=== PATIENT | female | born 1945 | race Caucasian/White ===

== ENCOUNTER → 2016-08-03 | Outpatient (CLI) | payer MEDICARE, BC ==
[~2016-08-03] MED LIST: B-121000 MCG PO; CALCIUM 600600 M2 PO; CLEOCIN HCL300 MG PO; FOLIC ACID800 MCG PO; FOSAMAX5 MG PO; KLOR-CON M2020 MEQ PO; MAGNESIUM500 MG PO; NORCO 325 MG-51 TAB PO; OSCAL 500 TAB500 MG PO; PREDNISONE10 MG PO; PROAIR HFA0.09 MG/AC IH; QVAR0.08 MG/AC IH; ROBAXIN100 MG/ML; SINGULAIR 110 MG/TAB PO; TOPAMAX 100MG100 M1 PO; VITAMIN D 1001000 IU PO; VTAMINC250TA PO
== END ==
LOC: COL.VAS 08:39
DX: M79.604 Pain in right leg (principal); M79.89 Other specified soft tissue disorders; M25.562 Pain in left knee

== ENCOUNTER → 2016-10-25 | Outpatient (CLI) | payer MEDICARE, BC | LOC: MC.RAD 11:28 | DX: Z12.31 Encounter for screening mammogram for malignant neoplasm of breast (principal) ==

== ENCOUNTER 2018-01-28 10:13 | Day surgery (SDC) | payer MEDICARE, BC ==
[~2018-01-28] VITALS: Ht 152.4 cm; Wt 42.4 kg
[~2018-01-28 10:13] MED LIST changes: +CEPHALEXIN500 M1 PO; +DOXYCYCLINE 10100 MG PO; +RITUXAN HY1400 MG/11 IV.SOLN; +TAZTIA180 PO
[2018-01-28] MEDS ORDERED: CALCIUM 600-D 61 TAB PO (11:02)
[2018-01-28] MEDS ORDERED: ANORO IH (11:02)
[2018-01-28] MEDS ORDERED: TOPROL XL 25MG25 MG PO (11:03)
[2018-01-28] MEDS ORDERED: MAG-OX 400400 MG/TAB PO (11:03)
[2018-01-28] MEDS ORDERED: ATROVENTNS0.03% NS (11:04)
[2018-01-28] MEDS ORDERED: CEPHALEXIN250 M1 PO (11:04)
[2018-01-28] MEDS ORDERED: SYNTHROID0.05 MG/TA PO (11:05)
[2018-01-28 11:18] VITALS: BP 119/61; PULSE 60; TEMP 97.6
[2018-01-28 13:12] VITALS: BP 111/49; PULSE 52; TEMP 97.5
[2018-01-28 13:27] VITALS: BP 108/48; PULSE 51
[2018-01-28 13:42] VITALS: BP 102/49; PULSE 51
[2018-01-28 13:57] VITALS: BP 108/43; PULSE 62
== END 2018-01-28 14:40 | disposition home or self-care (01) ==
LOC: SDCO 10:13
DX: G43.909 Migraine, unspecified, not intractable, without status migrainosus (principal); J44.9 Chronic obstructive pulmonary disease, unspecified; M06.9 Rheumatoid arthritis, unspecified; I35.9 Nonrheumatic aortic valve disorder, unspecified; F17.210 Nicotine dependence, cigarettes, uncomplicated; D50.9 Iron deficiency anemia, unspecified; Z88.5 Allergy status to narcotic agent; Z96.651 Presence of right artificial knee joint; Z96.641 Presence of right artificial hip joint
CPT/HCPCS: J2250; J2405; J2704; J2795; J3010; J7120

== ENCOUNTER 2018-05-20 19:45 | Inpatient (IN) | payer MEDICARE, BC ==
[~2018-05-20] VITALS: Ht 157.5 cm; Wt 50.9 kg
[~2018-05-20 19:45] MED LIST changes: +ANORO IH; +ATROVENTNS0.03% NS; +CALCIUM 600-D 61 TAB PO; +CEPHALEXIN250 M1 PO; +MAG-OX 400400 MG/TAB PO; +SYNTHROID0.05 MG/TA PO; +TOPROL XL 25MG25 MG PO
[2018-05-20 21:25] LABS: BASO # 0.1 (0.0-0.2); BASO % 0.5 % (0.0-2.0); EOS # 0.1 (0.0-0.7); EOS % 0.8 % (0-4.0); GRAN # 12.3 (1.4-6.5); GRAN % 87.1 % (42.2-75.2); HEMOGLOBIN 10.4 g/dl (12.5-16.0); LYMPH # 0.8 (1.2-3.4); MEAN CELL VOLUME 89 fl (80.0-100.0); MEAN CORPUSCULAR HEMOGLOBIN 28 pg (27.0-31.0); MEAN CORPUSCULAR HGB CONC 32 g/dl (33.0-37.0); MEAN PLATELET VOLUME 9.5 fl (7.4-10.4); MONO # 0.7 (0.1-0.6); MONO % 5.2 % (1.7-9.3); PLATELET COUNT 222 K/mm3 (130-400); RED BLOOD COUNT 3.69 M/mm3 (4.10-5.30); REDCELL DISTRIBUTION WIDTH-CV 20.9 % (11.5-14.5)
[2018-05-20 21:29] LABS: HEMATOCRIT 32.8 % (37.0-47.0)
[2018-05-20 21:36] LABS: ALANINE AMINOTRANSFERASE 24 U/L (9-52); ALBUMIN 3.4 gm/dL (3.5-5.0); ALKALINE PHOSPHATASE 31 U/L (50-136); ANION GAP 3 mmol/L (7-16); AST,SGOT 23 U/L (15-37); BILIRUBIN,TOTAL < 0.1 mg/dL (0.0-1.0); BLOOD UREA NITROGEN 22 mg/dL (7-17); C-REACTIVE PROTEIN 6.5 mg/dL (0.0-0.9); CALCIUM 8.5 mg/dL (8.4-10.2); CARBON DIOXIDE 28 mmol/L (22-30); CHLORIDE 113 mmol/L (98-107); CREATININE, serum 0.93 mg/dL (0.52-1.25); GLUCOSE 90 mg/dL (74-106); POTASSIUM 3.3 mmol/L (3.4-5.0); SODIUM 143 mmol/L (137-145)
[2018-05-20 23:39] VITALS: BP 125/47; PULSE 88; TEMP 103.1
[2018-05-21] VITALS (809 sets, daily range): BP systolic 81–121; BP diastolic 33–61; PULSE 67–84; TEMP 97.8–99.9; O2SAT 51–100
[2018-05-21 00:47] LABS: MAGNESIUM 2.3 mg/dL (1.6-2.3)
[2018-05-21] MEDS ORDERED: LASIX 20MG TABL20 MG PO (04:41)
[2018-05-21] MEDS ORDERED: NEURONTIN300 MG/CAP PO (04:41)
[2018-05-21] MEDS ORDERED: DEPAKOTE 250MG250 MG PO (04:43)
[2018-05-21 06:11] LABS: BASO % 0.3 % (0.0-2.0); EOS % 0.3 % (0-4.0); GRAN % 84.3 % (42.2-75.2); MEAN CELL VOLUME 90 fl (80.0-100.0); MEAN CORPUSCULAR HGB CONC 31 g/dl (33.0-37.0); MEAN PLATELET VOLUME 10.1 fl (7.4-10.4); MONO % 7.3 % (1.7-9.3); PLATELET COUNT 181 K/mm3 (130-400); RED BLOOD COUNT 3.02 M/mm3 (4.10-5.30); REDCELL DISTRIBUTION WIDTH-CV 21.2 % (11.5-14.5)
[2018-05-21 06:27] LABS: HEMATOCRIT 27.1 % (37.0-47.0); HEMOGLOBIN 8.4 g/dl (12.5-16.0); MEAN CORPUSCULAR HEMOGLOBIN 28 pg (27.0-31.0)
[2018-05-21 06:28] LABS: INR 1.2 (0.8-3.0)
[2018-05-21 06:33] LABS: CALCIUM 7.1 mg/dL (8.4-10.2); CREATININE, serum 0.91 mg/dL (0.52-1.25); POTASSIUM 4.2 mmol/L (3.4-5.0)
[2018-05-21 06:38] LABS: SALICYLATE 3.4 mg/dL
[2018-05-21 06:46] LABS: TROPONIN-I 0.031 ng/mL (0.000-0.034)
[2018-05-21 06:53] LABS: COLLECTION METHOD CLEAN CATCH
[2018-05-21 07:05] LABS: PH 6 (5-8); SQUAMOUS EPITHELIAL None Seen /hpf; URINE APPEARANCE Clear; URINE BACTERIA None Seen /hpf; URINE BILIRUBIN Negative (NEGATIVE); URINE BLOOD 1+ (NEGATIVE); URINE COLOR Yellow; URINE GLUCOSE Negative (NEGATIVE); URINE KETONE Negative (NEGATIVE); URINE LEUKOCYTE ESTERASE Negative (NEGATIVE); URINE NITRATE Negative (NEGATIVE); URINE PROTEIN(semi-quant) Negative (NEGATIVE); URINE UROBILINOGEN Negative (NEGATIVE)
[2018-05-21 07:11] LABS: ARTERIAL BLD GAS O2 SATURATION 93.6 % (92-100); ARTERIAL BLD GAS TCO2 CT 22.7; ARTERIAL BLOOD GAS HCO3 21.5 meq/L (22-26); ARTERIAL BLOOD GAS PCO2 36.5 mmHg (35-45); ARTERIAL BLOOD GAS PO2 74.5 mmHg (80-100); ARTERIAL BLOOD GAS pH 7.39 (7.35-7.45)
[2018-05-21 17:53] LABS: BASO # 0.1 (0.0-0.2); BASO % 0.5 % (0.0-2.0); EOS # 0.1 (0.0-0.7); EOS % 0.9 % (0-4.0); GRAN # 8.6 (1.4-6.5); GRAN % 80.5 % (42.2-75.2); LYMPH # 0.9 (1.2-3.4); LYMPH % 8.7 % (20.0-51.0); MEAN CELL VOLUME 90 fl (80.0-100.0); MEAN CORPUSCULAR HGB CONC 31 g/dl (33.0-37.0); MEAN PLATELET VOLUME 9.9 fl (7.4-10.4); MONO # 0.9 (0.1-0.6); MONO % 8.7 % (1.7-9.3); PLATELET COUNT 186 K/mm3 (130-400); RED BLOOD COUNT 2.97 M/mm3 (4.10-5.30); REDCELL DISTRIBUTION WIDTH-CV 21.7 % (11.5-14.5)
[2018-05-21 17:54] LABS: HEMATOCRIT 26.8 % (37.0-47.0); HEMOGLOBIN 8.4 g/dl (12.5-16.0); MEAN CORPUSCULAR HEMOGLOBIN 28 pg (27.0-31.0)
[2018-05-21 18:04] LABS: CALCIUM 7.3 mg/dL (8.4-10.2); CREATININE, serum 1.09 mg/dL (0.52-1.25); POTASSIUM 3.9 mmol/L (3.4-5.0)
[2018-05-21 22:21] LABS: BASO % 0.4 % (0.0-2.0); EOS # 0.1 (0.0-0.7); EOS % 0.5 % (0-4.0); GRAN # 7.3 (1.4-6.5); GRAN % 78.5 % (42.2-75.2); HEMATOCRIT 26.3 % (37.0-47.0); HEMOGLOBIN 8.2 g/dl (12.5-16.0); LYMPH % 10.6 % (20.0-51.0); MEAN CELL VOLUME 90 fl (80.0-100.0); MEAN CORPUSCULAR HEMOGLOBIN 28 pg (27.0-31.0); MEAN CORPUSCULAR HGB CONC 31 g/dl (33.0-37.0); MEAN PLATELET VOLUME 9.6 fl (7.4-10.4); MONO # 0.9 (0.1-0.6); MONO % 9.7 % (1.7-9.3); PLATELET COUNT 176 K/mm3 (130-400); RED BLOOD COUNT 2.94 M/mm3 (4.10-5.30); REDCELL DISTRIBUTION WIDTH-CV 21.7 % (11.5-14.5)
[2018-05-21 22:31] LABS: CALCIUM 7.5 mg/dL (8.4-10.2); CREATININE, serum 0.98 mg/dL (0.52-1.25); POTASSIUM 4.2 mmol/L (3.4-5.0)
[2018-05-22] VITALS (1027 sets, daily range): BP systolic 115–134; BP diastolic 57–67; PULSE 61–93; TEMP 97.3–101.4; O2SAT 60–100
[2018-05-22 02:13] LABS: BASO # 0.1 (0.0-0.2); BASO % 0.5 % (0.0-2.0); EOS # 0.1 (0.0-0.7); EOS % 0.6 % (0-4.0); GRAN # 6.7 (1.4-6.5); GRAN % 72.3 % (42.2-75.2); LYMPH # 1.4 (1.2-3.4); MEAN CELL VOLUME 90 fl (80.0-100.0); MEAN CORPUSCULAR HGB CONC 31 g/dl (33.0-37.0); MEAN PLATELET VOLUME 9.6 fl (7.4-10.4); MONO % 11.2 % (1.7-9.3); PLATELET COUNT 181 K/mm3 (130-400); RED BLOOD COUNT 2.96 M/mm3 (4.10-5.30); REDCELL DISTRIBUTION WIDTH-CV 21.6 % (11.5-14.5)
[2018-05-22 02:17] LABS: HEMATOCRIT 26.6 % (37.0-47.0); HEMOGLOBIN 8.2 g/dl (12.5-16.0); MEAN CORPUSCULAR HEMOGLOBIN 28 pg (27.0-31.0)
[2018-05-22 02:29] LABS: CALCIUM 7.4 mg/dL (8.4-10.2); CREATININE, serum 0.91 mg/dL (0.52-1.25); POTASSIUM 4.1 mmol/L (3.4-5.0)
[2018-05-22 06:29] LABS: BASO # 0.1 (0.0-0.2); BASO % 0.7 % (0.0-2.0); EOS # 0.1 (0.0-0.7); EOS % 1.4 % (0-4.0); GRAN # 5.8 (1.4-6.5); GRAN % 66.3 % (42.2-75.2); HEMATOCRIT 26.7 % (37.0-47.0); HEMOGLOBIN 8.1 g/dl (12.5-16.0); LYMPH # 1.6 (1.2-3.4); LYMPH % 18.6 % (20.0-51.0); MEAN CELL VOLUME 92 fl (80.0-100.0); MEAN CORPUSCULAR HEMOGLOBIN 28 pg (27.0-31.0); MEAN CORPUSCULAR HGB CONC 30 g/dl (33.0-37.0); MONO # 1.1 (0.1-0.6); MONO % 12.8 % (1.7-9.3); PLATELET COUNT 178 K/mm3 (130-400); RED BLOOD COUNT 2.91 M/mm3 (4.10-5.30); REDCELL DISTRIBUTION WIDTH-CV 21.8 % (11.5-14.5)
[2018-05-22 06:41] LABS: INR 1.1 (0.8-3.0); PROTHROMBIN TIME 12.6 SECONDS (9.7-12.8)
[2018-05-22 06:59] LABS: ALANINE AMINOTRANSFERASE 28 U/L (9-52); ALBUMIN 2.4 gm/dL (3.5-5.0); ALKALINE PHOSPHATASE 24 U/L (50-136); ANION GAP -1 mmol/L (7-16); AST,SGOT 28 U/L (15-37); BILIRUBIN,TOTAL < 0.1 mg/dL (0.0-1.0); BLOOD UREA NITROGEN 11 mg/dL (7-17); CALCIUM 7.5 mg/dL (8.4-10.2); CARBON DIOXIDE 26 mmol/L (22-30); CHLORIDE 116 mmol/L (98-107); CREATININE, serum 0.89 mg/dL (0.52-1.25); GLUCOSE 102 mg/dL (74-106); SODIUM 141 mmol/L (137-145); TOTAL PROTEIN 4.7 gm/dL (6.4-8.2)
[2018-05-23] VITALS (570 sets, daily range): BP systolic 112–146; BP diastolic 43–86; PULSE 57–81; TEMP 97.5–99.6; O2SAT 78–100
[2018-05-23 06:10] LABS: BASO # 0.1 (0.0-0.2); BASO % 1.3 % (0.0-2.0); EOS # 0.7 (0.0-0.7); EOS % 11.8 % (0-4.0); GRAN # 2.6 (1.4-6.5); GRAN % 46.6 % (42.2-75.2); LYMPH # 1.6 (1.2-3.4); LYMPH % 28.8 % (20.0-51.0); MEAN CELL VOLUME 91 fl (80.0-100.0); MEAN CORPUSCULAR HGB CONC 30 g/dl (33.0-37.0); MEAN PLATELET VOLUME 9.7 fl (7.4-10.4); MONO # 0.6 (0.1-0.6); MONO % 11.3 % (1.7-9.3); PLATELET COUNT 166 K/mm3 (130-400); RED BLOOD COUNT 2.85 M/mm3 (4.10-5.30); REDCELL DISTRIBUTION WIDTH-CV 21.2 % (11.5-14.5)
[2018-05-23 06:16] LABS: HEMOGLOBIN 7.9 g/dl (12.5-16.0); MEAN CORPUSCULAR HEMOGLOBIN 28 pg (27.0-31.0)
[2018-05-23 06:32] LABS: CALCIUM 7.5 mg/dL (8.4-10.2); CREATININE, serum 0.87 mg/dL (0.52-1.25); PROTHROMBIN TIME 11.2 SECONDS (9.7-12.8)
[2018-05-24 04:21] VITALS: BP 117/56; PULSE 77
[2018-05-24 07:41] LABS: BASO # 0.1 (0.0-0.2); EOS # 0.5 (0.0-0.7); EOS % 8.8 % (0-4.0); GRAN # 3.3 (1.4-6.5); GRAN % 56.4 % (42.2-75.2); LYMPH # 1.3 (1.2-3.4); LYMPH % 21.6 % (20.0-51.0); MEAN CELL VOLUME 91 fl (80.0-100.0); MEAN CORPUSCULAR HGB CONC 31 g/dl (33.0-37.0); MEAN PLATELET VOLUME 9.9 fl (7.4-10.4); MONO # 0.7 (0.1-0.6); MONO % 11.9 % (1.7-9.3); PLATELET COUNT 226 K/mm3 (130-400); RED BLOOD COUNT 3.04 M/mm3 (4.10-5.30)
[2018-05-24 07:46] LABS: PROTHROMBIN TIME 11.3 SECONDS (9.7-12.8)
[2018-05-24 07:48] LABS: HEMATOCRIT 27.5 % (37.0-47.0); HEMOGLOBIN 8.4 g/dl (12.5-16.0); MEAN CORPUSCULAR HEMOGLOBIN 28 pg (27.0-31.0)
[2018-05-24 07:50] LABS: CALCIUM 8.3 mg/dL (8.4-10.2); CREATININE, serum 0.81 mg/dL (0.52-1.25); POTASSIUM 3.9 mmol/L (3.4-5.0)
[2018-05-24 07:57] VITALS: BP 126/62; PULSE 77; TEMP 98.9
[2018-05-24 11:11] VITALS: BP 126/53; PULSE 68; TEMP 99.1
[2018-05-24] MEDS ORDERED: DOXYCYCLINE HY100 MG PO (13:33)
[2018-05-24] MEDS ORDERED: ANTI-DIARRHEAL2 MG PO (13:34)
[2018-05-24] MEDS ORDERED: FLORASTOR250 MG PO (13:34)
[2018-05-24] MEDS ORDERED: CEPHALEXIN500 M1 PO (13:34)
[2018-05-24 13:35] LABS: TSH w REFLEX 7.61 uIU/mL (0.465-4.680)
== END 2018-05-24 14:40 | disposition home or self-care (01) | DRG 871 ==
LOC: COL.ER 19:45 → MEDICAL 22:15 → ICU 22:15 → MEDICAL 05-23 12:33
PROVIDERS: Family Medicine; Hospitalist; Internal Medicine Pulmonary Disease; Nurse Practitioner Family; Physician Assistant
PROC: 02HV33Z Insertion of Infusion Device into Superior Vena Cava, Percutaneous Approach (ICD-10-PCS; principal; 2018-05-21)
DX: A41.9 Sepsis, unspecified organism (principal); E43 Unspecified severe protein-calorie malnutrition; L03.115 Cellulitis of right lower limb; Z68.1 Body mass index [BMI] 19.9 or less, adult; Z66 Do not resuscitate; R65.20 Severe sepsis without septic shock; H35.52 Pigmentary retinal dystrophy; J44.9 Chronic obstructive pulmonary disease, unspecified; I10 Essential (primary) hypertension; M06.9 Rheumatoid arthritis, unspecified; F17.210 Nicotine dependence, cigarettes, uncomplicated; I87.2 Venous insufficiency (chronic) (peripheral); E87.6 Hypokalemia; D64.9 Anemia, unspecified; G62.9 Polyneuropathy, unspecified
CPT/HCPCS: 99223-AI; 99232-AI; 99233-AI; 99239; A4216; J0692; J0696; J1650; J2270; J2405; J2543; J3010; J3370; J7030; J7040; J7050; J7120

== ENCOUNTER 2018-10-09 05:07 | Observation (INO) | payer MEDICARE, BC ==
[~2018-10-09] VITALS: Ht 152.4 cm; Wt 48.4 kg
[~2018-10-09 05:07] MED LIST changes: +ANTI-DIARRHEAL2 MG PO; +DEPAKOTE 250MG250 MG PO; +DOXYCYCLINE HY100 MG PO; +FLORASTOR250 MG PO; +LASIX 20MG TABL20 MG PO; +NEURONTIN300 MG/CAP PO
[2018-10-09 05:59] LABS: MEAN CELL VOLUME 88 fl (80.0-100.0); MEAN CORPUSCULAR HGB CONC 30 g/dl (33.0-37.0); MEAN PLATELET VOLUME 8.5 fl (7.4-10.4); PLATELET COUNT 396 K/mm3 (130-400); RED BLOOD COUNT 3.62 M/mm3 (4.10-5.30); REDCELL DISTRIBUTION WIDTH-CV 24.5 % (11.5-14.5)
[2018-10-09 06:00] LABS: HEMATOCRIT 31.9 % (37.0-47.0); HEMOGLOBIN 9.6 g/dl (12.5-16.0); MEAN CORPUSCULAR HEMOGLOBIN 27 pg (27.0-31.0)
[2018-10-09 06:08] LABS: INR 1.1 (0.8-3.0); PROTHROMBIN TIME 12.1 SECONDS (9.7-12.8)
[2018-10-09 06:18] LABS: ALANINE AMINOTRANSFERASE 18 U/L (9-52); ALBUMIN 2.6 gm/dL (3.5-5.0); ALKALINE PHOSPHATASE 44 U/L (50-136); ANION GAP 6 mmol/L (7-16); AST,SGOT 16 U/L (15-37); BILIRUBIN,TOTAL < 0.1 mg/dL (0.0-1.0); BLOOD UREA NITROGEN 18 mg/dL (7-17); CALCIUM 7.7 mg/dL (8.4-10.2); CARBON DIOXIDE 21 mmol/L (22-30); CHLORIDE 113 mmol/L (98-107); CREATININE, serum 0.84 (0.52-1.25); GLUCOSE 114 mg/dL (74-106); POTASSIUM 3.1 mmol/L (3.4-5.0); SODIUM 141 mmol/L (137-145); TOTAL PROTEIN 4.8 gm/dL (6.4-8.2)
[2018-10-09 06:35] LABS: TROPONIN-I < 0.012 ng/mL (0.000-0.035)
[2018-10-09 07:12] LABS: ANISOCYTOSIS 3+; BAND 19 % (0-10); EOSINOPHIL 3 % (0-4); LYMPHOCYTE 16 % (20.0-51.0); METAMYELOCYTE 2 % (0-0); NEUTROPHILS 50 % (42.0-75.2); PLATELET ESTIMATE NORMAL (NORMAL)
[2018-10-09 09:17] LABS: COLLECTION METHOD CLEAN CATCH
[2018-10-09 09:45] LABS: MUCOUS Present /lpf; PH 5 (5-8); SQUAMOUS EPITHELIAL 0-2 /hpf; URINE APPEARANCE Clear; URINE BACTERIA Rare /hpf; URINE BILIRUBIN Negative (NEGATIVE); URINE BLOOD 1+ (NEGATIVE); URINE COLOR Yellow; URINE GLUCOSE Negative (NEGATIVE); URINE KETONE Negative (NEGATIVE); URINE LEUKOCYTE ESTERASE Negative (NEGATIVE); URINE NITRATE Negative (NEGATIVE); URINE PROTEIN(semi-quant) Negative (NEGATIVE); URINE UROBILINOGEN Negative (NEGATIVE)
[2018-10-09] MEDS ORDERED: AZULFIDINE ENT500 MG PO (10:18)
[2018-10-09] MEDS ORDERED: VASOTEC 2.2.5 MG/TAB PO (10:19)
[2018-10-09 13:34] VITALS: BP 105/42; PULSE 76; TEMP 98.4
--- NOTE | 2018-10-09 14:30 | NUR ---
Arrived to the room at this time. One assist to the bed, weakness present. The is at the bedside. Initial assessment completed. INT to the left forearm.
[2018-10-09] MEDS ORDERED: PROAIR HFA0.09 MG/AC IH (15:06)
[2018-10-09] MEDS ORDERED: OSCAL 500 TAB500 MG PO (15:07)
[2018-10-09] MEDS ORDERED: B-121000 MCG PO (15:08)
[2018-10-09] MEDS ORDERED: ALBUTEROL0.83 MG/ML IH (15:08)
[2018-10-09] MEDS ORDERED: FOLIC ACID 11 MG/TA1 PO (15:09)
[2018-10-09] MEDS ORDERED: MAGNESIUM500 MG PO (15:10)
[2018-10-09] MEDS ORDERED: PROBIOTIC FORMU1 CAP PO (15:11)
[2018-10-09] MEDS ORDERED: TOPROL XL 25MG25 MG PO (15:12)
[2018-10-09] MEDS ORDERED: LEVOXYL0.05 MG PO (15:14)
[2018-10-09] MEDS ORDERED: ULTRAM 50MG TAB50 MG PO (15:15)
[2018-10-09 15:26] VITALS: BP 109/49; PULSE 100; TEMP 98.3
--- NOTE | 2018-10-09 18:53 | NUR ---
No change throughout the shift. The patient remains tired and weak. The bed alarm is in place. The call light is in place. Observation over night. Report given to MEG Cleveland to resume care.
[2018-10-09 20:05] VITALS: BP 123/55; PULSE 97; TEMP 99.7
--- NOTE | 2018-10-10 03:30 | NUR ---
PT HAS SLEPT WELL THIS NOC. AWOKE AT THIS TIME TO USE THE BATHROOM. PT WAS ABLE TO WALK TO BATHROOM, WAS HURTING TO MUCH AND HAD TO STOP ON THE WAY BACK TO BED AND REST. PT WAS VERY TEARFUL, STATED "IM DONE, IN MORE WAYS THEN ONE." THIS NURSE ASSISTED PT TO BED AND ADMINISTERED PRN PAIN MED. PT VOICED THAT SHE WAS TIRED OF HAVING IV FLUIDS GOING, STATED THAT THEY HAVE BEEN PUMPING HER FULL OF FLUIDS FOR HOURS AND THAT SHE SHOULD BE FULL BY NOW.
[2018-10-10 04:46] VITALS: BP 121/46; PULSE 74; TEMP 98
--- NOTE | 2018-10-10 06:02 | NUR ---
PT HAS C/O INTERMENTANT NAUSEA THIS AM. STATES THAT IT COMES AND GOES. WILL CALL FOR ORDER FOR ANTI-NAUSEA MED.
--- NOTE | 2018-10-10 06:05 | NUR ---
PT HAD C/O INTERMENTANT NASUEA THIS AM. STATED THAT IT COMES AND GOES. ATTEMPTED TO CALL P D DRIVER FOR POSSIBLE PRN MEDICATION ORDER, WILL RE-ATTEMPT AT A LATER HOUR, OR PASS ON TO NEXT NURSE.
--- NOTE | 2018-10-10 07:05 | NUR ---
Received bedside report from shift supervisor nurse. Pt stated no needs at this time. Will continue to monitor.
[2018-10-10 07:08] LABS: CALCIUM 6.8 mg/dL (8.4-10.2); CREATININE, serum 0.61 (0.52-1.25); MAGNESIUM 2.2 mg/dL (1.6-2.3); POTASSIUM 3.9 mmol/L (3.4-5.0)
[2018-10-10 07:10] LABS: HEMOGLOBIN 9.8 g/dl (12.5-16.0); MEAN CELL VOLUME 89 fl (80.0-100.0); MEAN CORPUSCULAR HEMOGLOBIN 26 pg (27.0-31.0); MEAN CORPUSCULAR HGB CONC 30 g/dl (33.0-37.0); MEAN PLATELET VOLUME 8.6 fl (7.4-10.4); PLATELET COUNT 390 K/mm3 (130-400); RED BLOOD COUNT 3.71 M/mm3 (4.10-5.30); REDCELL DISTRIBUTION WIDTH-CV 24.7 % (11.5-14.5)
[2018-10-10 07:52] LABS: ANISOCYTOSIS 3+; BAND 20 % (0-10); BASOPHIL 1 % (0-2); EOSINOPHIL 1 % (0-4); LYMPHOCYTE 10 % (20.0-51.0); METAMYELOCYTE 3 % (0-0); NEUTROPHILS 56 % (42.0-75.2); PLATELET ESTIMATE NORMAL (NORMAL)
[2018-10-10 08:24] VITALS: BP 137/64; PULSE 72; TEMP 98.3
--- NOTE | 2018-10-10 09:30 | NUR ---
Assessment charted. Pt has not been wanting meals or snacks but took morning meds well. Pt has vision impairment and difficulty hearing. Needed cues to keep on task and was lethargic. Pt up to shower and do hygeine with OT. Pt stated pain and was given Altram to help relieve it. Will continue to monitor.
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
[2018-10-10 12:33] VITALS: BP 113/56; PULSE 71; TEMP 98.2
[2018-10-10 16:00] VITALS: BP 122/53; PULSE 68; TEMP 98.9
--- NOTE | 2018-10-10 18:39 | NUR ---
Pt has done well overall, with some bouts of confusion throughout the day. Needs cued with tasks and will lose train of thought. Pt stated she had no pain upon last rounding and has gotten up to the bathroom and shower with no difficulties other than some direction from nurse staff. Will continue to monitor until giving bedside report to nightshift nurse.
[2018-10-10 20:08] VITALS: BP 132/57; PULSE 82; TEMP 98.4
[2018-10-10 23:29] VITALS: BP 122/55; PULSE 73; TEMP 99.4
--- NOTE | 2018-10-11 00:37 | NUR ---
Acute wheezing with mild SOB; RT requested for PRN breathing treatment; Pending result. CDA
--- NOTE | 2018-10-11 01:10 | NUR ---
Post breathing treatment bilateral lung clear; PT verbalizes ease with breathing and no SOB; PT able to return to comfortable position in bed with call light within reach. Will continue to monitor. CDA
--- NOTE | 2018-10-11 01:48 | NUR ---
PT resting well in upright position in bed post breathing treatment; No acute concerns or further assessed needs at time of rounds; PT maintained comfortable position in bed with call light and personal items within reach; Will continue to monitor. CDA
[2018-10-11 04:15] VITALS: BP 119/54; PULSE 73; TEMP 97.9
--- NOTE | 2018-10-11 06:53 | NUR ---
Report given to Angela; No significant changes or concerns at change of shift. CDA
[2018-10-11 08:05] VITALS: BP 116/50; PULSE 58; TEMP 98.6
--- NOTE | 2018-10-11 09:23 | NUR ---
Pt assessment complete. Pt is laying in bed upon entry, she is A/O x3. Her breathing is even and unlabored on RA. Pt denies SOB. Occasional cough present. Pt reports R lower back pain, no bruising/redness/edema present. Pt denies N/V. No needs at this time. Call light within reach.
[2018-10-11] MEDS ORDERED: ASPERCREME1 EACH TP (09:47)
[2018-10-11] MEDS ORDERED: REMERON 15M15 MG/TA1 PO (09:47)
--- NOTE | 2018-10-11 10:10 | NUR ---
The patient is to discharge today, 10/11. The patient inquired about home health services. ALAYNA provided the Medicare.gov list of agencies serving the [facility]. The patient and her Thierno chose [facility]. ALAYNA faxed referral to [facility]. There are no additional needs at this time.
--- NOTE | 2018-10-11 10:50 | NUR ---
Discharge paperwork reviewed with patient. All questions answered at this time. IV to LFA dc'd, catheter tip intact. Pt wheeled out at this time.
== END 2018-10-11 10:52 | disposition home or self-care (01) ==
LOC: COL.ER 05:07 → MEDICAL 10:55
PROVIDERS: Emergency Medicine; Physician Assistant; ADMIT Hospitalist
DX: R53.1 Weakness (principal); M54.5 Low back pain; F32.9 Major depressive disorder, single episode, unspecified; I95.9 Hypotension, unspecified; E87.6 Hypokalemia; E46 Unspecified protein-calorie malnutrition; J44.9 Chronic obstructive pulmonary disease, unspecified; M06.9 Rheumatoid arthritis, unspecified; D64.9 Anemia, unspecified; G43.909 Migraine, unspecified, not intractable, without status migrainosus; E03.9 Hypothyroidism, unspecified; E44.0 Moderate protein-calorie malnutrition; F17.210 Nicotine dependence, cigarettes, uncomplicated; Z96.651 Presence of right artificial knee joint; Z96.641 Presence of right artificial hip joint; Z88.5 Allergy status to narcotic agent; Z88.8 Allergy status to other drugs, medicaments and biological substances
CPT/HCPCS: G0378; J1650; J7030; J7040

== ENCOUNTER → 2018-12-23 | Outpatient (REF) ==
[~2018-12-23] MED LIST changes: +ALBUTEROL0.83 MG/ML IH; +ASPERCREME1 EACH TP; +AZULFIDINE ENT500 MG PO; +FOLIC ACID 11 MG/TA1 PO; +LEVOXYL0.05 MG PO; +PROBIOTIC FORMU1 CAP PO; +REMERON 15M15 MG/TA1 PO; +ULTRAM 50MG TAB50 MG PO; +VASOTEC 2.2.5 MG/TAB PO
[2018-12-23 17:30] LABS: BASO # 0.1 (0.0-0.2); EOS # 0.2 (0.0-0.7); EOS % 1.9 % (0-4.0); GRAN # 4.3 (1.4-6.5); LYMPH # 2.7 (1.2-3.4); MEAN CELL VOLUME 86 fl (80.0-100.0); MEAN CORPUSCULAR HEMOGLOBIN 27 pg (27.0-31.0); MEAN CORPUSCULAR HGB CONC 31 g/dl (33.0-37.0); MEAN PLATELET VOLUME 8.6 fl (7.4-10.4); MONO % 12.1 % (1.7-9.3); PLATELET COUNT 395 K/mm3 (130-400); RED BLOOD COUNT 3.74 M/mm3 (4.10-5.30); REDCELL DISTRIBUTION WIDTH-CV 17.8 % (11.5-14.5)
[2018-12-23 17:31] LABS: HEMATOCRIT 32.3 % (37.0-47.0)
[2018-12-23 17:47] LABS: ALANINE AMINOTRANSFERASE 12 U/L (9-52); ALBUMIN 3.2 gm/dL (3.5-5.0); ALKALINE PHOSPHATASE 34 U/L (50-136); ANION GAP 9 mmol/L (7-16); AST,SGOT 18 U/L (15-37); BILIRUBIN,TOTAL < 0.1 mg/dL (0.0-1.0); BLOOD UREA NITROGEN 25 mg/dL (7-17); CARBON DIOXIDE 28 mmol/L (22-30); CHLORIDE 102 mmol/L (98-107); CREATININE, serum 1.06 (0.52-1.25); GLUCOSE 75 mg/dL (74-106); POTASSIUM 4.5 mmol/L (3.4-5.0); SODIUM 138 mmol/L (137-145); TOTAL PROTEIN 5.4 gm/dL (6.4-8.2)
== END ==
LOC: ZCOL.LAB 17:19
PROVIDERS: Nurse Practitioner Family
DX: Z01.89 Encounter for other specified special examinations (principal)

== ENCOUNTER 2019-01-09 14:48 | Outpatient (CLI) | payer MEDICARE, BC ==
[~2019-01-09] VITALS: Ht 152.4 cm; Wt 41.1 kg
[2019-01-09 15:20] VITALS: BP 118/55; PULSE 58; TEMP 97.3
== END 2019-01-09 16:18 | disposition home or self-care (01) ==
LOC: EUO 14:48
DX: M81.0 Age-related osteoporosis without current pathological fracture (principal)
CPT/HCPCS: J3489

== ENCOUNTER 2019-02-06 07:19 | Outpatient (CLI) | payer MEDICARE, BC ==
[~2019-02-06] VITALS: Ht 152.4 cm; Wt 44.0 kg
[2019-02-06 08:01] VITALS: BP 112/50; PULSE 51
[2019-02-06] MEDS ORDERED: SYNTHROID0.05 MG/TA PO (08:19)
[2019-02-06] MEDS ORDERED: ASPIRIN 81M81 MG/TA2 PO (08:20)
[2019-02-06] MEDS ORDERED: ASPERCREME1 EACH TP (08:21)
[2019-02-06] MEDS ORDERED: METOPROLOL PO (08:25)
--- NOTE | 2019-02-06 09:33 | NUR ---
Patient taken by wheelchair for procedure. No further needs expressed from patient. Son in the room
[2019-02-06 10:57] VITALS: BP 107/52; PULSE 56
--- NOTE | 2019-02-06 10:59 | NUR ---
Patient back from procedure. Tolerated well. Patient assisted back to bed from wheelchair by nursing staff. IV removed, tip intact, gauze and coban applied. No further needs expressed from patient. Son at the bedside.
--- NOTE | 2019-02-06 11:35 | NUR ---
Discharge paperwork reviewed with patient and family. Family verbalized an understanding. IV removed, tip intact, gauze and coban applied. Patient assisted into wheelchair and transfered to vehicle. No further needs expressed from patient.
== END 2019-02-06 11:38 | disposition home or self-care (01) ==
LOC: COL.CAR 07:19
DX: R55 Syncope and collapse (principal); J44.9 Chronic obstructive pulmonary disease, unspecified; I35.1 Nonrheumatic aortic (valve) insufficiency; R60.0 Localized edema; Z88.5 Allergy status to narcotic agent; Z88.6 Allergy status to analgesic agent; Z88.8 Allergy status to other drugs, medicaments and biological substances

== ENCOUNTER → 2019-02-20 | Outpatient (CLI) | payer MEDICARE, BC ==
[~2019-02-20] MED LIST changes: +ASPIRIN 81M81 MG/TA2 PO; +METOPROLOL PO
== END ==
LOC: COL.CARD 09:28
DX: I63.9 Cerebral infarction, unspecified (principal); R40.4 Transient alteration of awareness

== ENCOUNTER 2019-03-22 14:05 | Inpatient (IN) | payer MEDICARE, BC ==
[~2019-03-22] VITALS: Ht 152.4 cm; Wt 44.8 kg
[2019-03-22 15:26] LABS: BASO # 0.1 (0.0-0.2); EOS # 0.4 (0.0-0.7); EOS % 6.2 % (0-4.0); GRAN # 3.9 (1.4-6.5); GRAN % 54.9 % (42.2-75.2); HEMATOCRIT 37.1 % (37.0-47.0); HEMOGLOBIN 11.3 g/dl (12.5-16.0); LYMPH # 1.8 (1.2-3.4); LYMPH % 25.2 % (20.0-51.0); MEAN CELL VOLUME 87 fl (80.0-100.0); MEAN CORPUSCULAR HEMOGLOBIN 27 pg (27.0-31.0); MEAN CORPUSCULAR HGB CONC 31 g/dl (33.0-37.0); MEAN PLATELET VOLUME 9.4 fl (7.4-10.4); MONO # 0.9 (0.1-0.6); MONO % 12.3 % (1.7-9.3); PLATELET COUNT 312 K/mm3 (130-400); RED BLOOD COUNT 4.25 M/mm3 (4.10-5.30)
[2019-03-22 15:38] LABS: ARTERIAL BLD GAS O2 SATURATION 89.7 % (92-100); ARTERIAL BLD GAS TCO2 CT 23.3; ARTERIAL BLOOD GAS BASE EXCESS -3.1 (-2-2); ARTERIAL BLOOD GAS HCO3 22.1 meq/L (22-26); ARTERIAL BLOOD GAS PO2 64.1 mmHg (80-100); ARTERIAL BLOOD GAS pH 7.36 (7.35-7.45)
[2019-03-22 15:41] LABS: ALANINE AMINOTRANSFERASE 22 U/L (9-52); ALBUMIN 3.4 gm/dL (3.5-5.0); ALKALINE PHOSPHATASE 34 U/L (50-136); ANION GAP 5 mmol/L (7-16); AST,SGOT 41 U/L (15-37); BILIRUBIN,TOTAL 0.1 mg/dL (0.0-1.0); BLOOD UREA NITROGEN 18 mg/dL (7-17); CALCIUM 8.1 mg/dL (8.4-10.2); CARBON DIOXIDE 29 mmol/L (22-30); CHLORIDE 107 mmol/L (98-107); CREATININE, serum 1.04 (0.52-1.25); GLUCOSE 56 mg/dL (74-106); POTASSIUM 3.4 mmol/L (3.4-5.0); SODIUM 142 mmol/L (137-145); TOTAL PROTEIN 5.8 gm/dL (6.4-8.2)
[2019-03-22 15:46] LABS: C-REACTIVE PROTEIN < 0.5 mg/dL (0.0-0.9)
[2019-03-22 15:50] LABS: TROPONIN-I < 0.012 ng/mL (0.000-0.035)
[2019-03-22 15:59] LABS: INR 0.9 (0.8-3.0); PROTHROMBIN TIME 10.2 SECONDS (9.7-12.8)
[2019-03-22 16:22] LABS: COLLECTION METHOD CATHETER
[2019-03-22 16:31] LABS: PH 5 (5-8); SQUAMOUS EPITHELIAL None Seen /hpf; URINE APPEARANCE Clear; URINE BACTERIA None Seen /hpf; URINE BILIRUBIN Negative (NEGATIVE); URINE BLOOD Negative (NEGATIVE); URINE COLOR Straw; URINE GLUCOSE Negative (NEGATIVE); URINE KETONE Negative (NEGATIVE); URINE LEUKOCYTE ESTERASE Negative (NEGATIVE); URINE NITRATE Negative (NEGATIVE); URINE PROTEIN(semi-quant) Negative (NEGATIVE); URINE UROBILINOGEN Negative (NEGATIVE)
[2019-03-22] MEDS ORDERED: ACIDOPHILIS (17:28)
--- NOTE | 2019-03-22 19:45 | NUR ---
Pt arrived from ER via stretcher. Transferred to medical bed.
[2019-03-22 20:10] VITALS: BP 105/47; PULSE 56; TEMP 97.5
--- NOTE | 2019-03-22 21:30 | NUR ---
Admission assessment completed. No distress noted. Pt sleeping upon entering the room, but easily arousable. Fall risk gown, socks and wristband applied. Respirations even and unlaobred. Exp. wheezing noted in lungs. Spo2 95% on RA. Abdomen soft, nontender. BS+. Pt reports generalized discomfort related to the bed. Mud Mixer Operator equal bilaterally, strong. Pupils equal and reactive, 4+. Pt is a poor historian. She knows who she is but thought she was in [place]. Reoriented. Bed alarm set for safety. Pt helped up to BSC. Voiding clear, yellow urine. Telemetry in place. Pt has periodic tremors. No needs noted. Will continue to monitor.
[2019-03-23] VITALS (7 sets, daily range): BP systolic 110–130; BP diastolic 50–81; PULSE 52–76; TEMP 97.6–99.2
--- NOTE | 2019-03-23 05:47 | NUR ---
Pt resting this AM. No distress noted. Pt has been up to BSC x4 tonight. Well tolerated. O2@2L. No needs noted thia AM.
[2019-03-23 06:43] LABS: BASO # 0.1 (0.0-0.2); BASO % 0.8 % (0.0-2.0); EOS # 0.3 (0.0-0.7); GRAN # 4.3 (1.4-6.5); GRAN % 64.5 % (42.2-75.2); HEMOGLOBIN 10.9 g/dl (12.5-16.0); LYMPH # 1.1 (1.2-3.4); LYMPH % 16.3 % (20.0-51.0); MEAN CELL VOLUME 88 fl (80.0-100.0); MEAN CORPUSCULAR HEMOGLOBIN 26 pg (27.0-31.0); MEAN CORPUSCULAR HGB CONC 30 g/dl (33.0-37.0); MEAN PLATELET VOLUME 9.3 fl (7.4-10.4); MONO # 0.9 (0.1-0.6); MONO % 13.1 % (1.7-9.3); PLATELET COUNT 296 K/mm3 (130-400); RED BLOOD COUNT 4.14 M/mm3 (4.10-5.30); REDCELL DISTRIBUTION WIDTH-CV 19.9 % (11.5-14.5)
[2019-03-23 06:45] LABS: HEMATOCRIT 36.3 % (37.0-47.0)
[2019-03-23 06:54] LABS: CALCIUM 7.8 mg/dL (8.4-10.2); CREATININE, serum 0.79 (0.52-1.25); POTASSIUM 3.4 mmol/L (3.4-5.0)
--- NOTE | 2019-03-23 08:30 | NUR ---
Up to bathroom with 1:1 assist and gait belt used, unsteady on her feet this morning. BM & voided in commode in bathroom. Complains of pain in the right shoulder with movement to the right side and pain in the coccyx, no redness, swelling or other abnormality noted on inspection of these sites. IV fluids infusing via pump to right arm. Patient is sleepy this morning, states she is not hungry. O2 on at 2 liters per NC. Sinus Lorenzo on monitor, rate 50's.
--- NOTE | 2019-03-23 09:55 | NUR ---
Complained to physical therapy of right shoulder pain rated 10/10, stated it was throbbing all night. Patient states that tramadol does not work and that she wants a narcotic. Patient's is at the bedside. He has ordered her breakfast, patient ate 100%. No pain medications are ordered at this time. Will continue to monitor.
--- NOTE | 2019-03-23 10:45 | NUR ---
Pt c/o pain to right shoulder, 10 out of 10, requesting pain medication, states, "Tramadol has not worked for me." Provider notified. See orders.
--- NOTE | 2019-03-23 10:46 | NUR ---
IVF rate decreased to 75 ml/hr per orders.
--- NOTE | 2019-03-23 12:15 | NUR ---
Patient up to the bathroom, had another BM and urinated. Patient has been sleeping and no further complaints of pain. Pain relieved with rest. Gait is steadier than it was this morning. Patient reports that her has ordered her lunch. Grilled cheese and a tomato soup.
--- NOTE | 2019-03-23 15:46 | NUR ---
SW contacted the patient's husbard, Thierno (ph#[phone]), to discuss discharge plan. The patient was sleeping. The patient lives in [place] with her , Thierno. Thierno reports that the patient is independent with ADLs and has a cane and walker. He states that the patient had home health back in December and January from [facility]. The patient's PCP is Dr. Jean Coronado and she receives her medications from [facility]. Thierno reports no difficulties obtaining her meds. The patient's advanced directives are in EMR. Her DPOA-HC is her , Thierno, and the alternate is her son, Cornell Hutchison. ALAYNA then discussed PT's recommendation of home with spouse if able and OT's recommendation of home with spouse if able vs SNF. The patient's reports that he would like for the patient to return home and that him and his liked home health and would be agreeable to that again. ALAYNA reviewed the Medicare.gov list of home health agencies that serve [place]. The patient's chose [facility]. ALAYNA contacted and faxed a referral to Vitor at [facility]. Vitor reports that they can accept the patient for services. SW to inform the patient's and will continue to follow.
--- NOTE | 2019-03-23 16:20 | NUR ---
Patient ate 80% of her lunch and has been sleeping since. No complaints of pain.
--- NOTE | 2019-03-23 20:30 | NUR ---
Initial shift assessment done- denies pain, Up to bathroom with assist, -tolerated fairly well, voiding and had small loose stool- back to bed, Tele on, bed alarm on- alert/oriented at this time, IV fluids at 75cc/hr.
[2019-03-24 04:32] VITALS: BP 129/57; PULSE 52; TEMP 98.2
--- NOTE | 2019-03-24 05:35 | NUR ---
Quiet night- no requests, was up to BSC 2-3 times tonight- weak but states is gtting stronger- VSS. Denies pain.
[2019-03-24 06:10] LABS: BASO % 0.5 % (0.0-2.0); EOS # 0.1 (0.0-0.7); EOS % 2.1 % (0-4.0); GRAN # 3.5 (1.4-6.5); GRAN % 56.2 % (42.2-75.2); HEMOGLOBIN 10.5 g/dl (12.5-16.0); LYMPH # 1.6 (1.2-3.4); LYMPH % 25.4 % (20.0-51.0); MEAN CELL VOLUME 85 fl (80.0-100.0); MEAN CORPUSCULAR HEMOGLOBIN 26 pg (27.0-31.0); MEAN CORPUSCULAR HGB CONC 31 g/dl (33.0-37.0); MEAN PLATELET VOLUME 9.5 fl (7.4-10.4); MONO # 0.9 (0.1-0.6); MONO % 15.3 % (1.7-9.3); PLATELET COUNT 250 K/mm3 (130-400); REDCELL DISTRIBUTION WIDTH-CV 19.5 % (11.5-14.5)
[2019-03-24 06:27] LABS: CALCIUM 8.3 mg/dL (8.4-10.2); CREATININE, serum 0.58 (0.52-1.25); POTASSIUM 3.6 mmol/L (3.4-5.0)
[2019-03-24 08:02] VITALS: BP 129/58; PULSE 56; TEMP 98.4
--- NOTE | 2019-03-24 11:16 | NUR ---
Initial visit; Patient and her thanked Glazing Department Supervisor for looking in on her and offering comfort and prayer. Glazing Department Supervisor will follow up while patient is here.
[2019-03-24 11:39] VITALS: BP 115/52; PULSE 85; TEMP 98.5
--- NOTE | 2019-03-24 12:00 | NUR ---
PT HAD UNEVENTFUL DAY. HAS BEEN UP TO RECLINER AND BACK TO BED A COUPLE TIMES. WORKED WITH PT/OT WITHOUT ISSUE.
--- NOTE | 2019-03-24 15:38 | NUR ---
The patient is to discharge back home with her today, 03/24, with home health services for senior living/PT/OT through [facility]. ALAYNA contacted and faxed the patient's orders to Vitor at [facility]. No additional needs at this time.
--- NOTE | 2019-03-24 15:45 | NUR ---
PT WAS ASSISTED TO CHANGE CLOTHES TO DISCHARGE. IV AND TELE REMOVED. PT BRUSHED HER TEETH. THIS NURSE ASSISTED PT IN GATHERING BELONGING AND PLACED IN A BELONGING BAG. PT CALLED HER TO COME GET HER.
--- NOTE | 2019-03-24 16:22 | NUR ---
WENT OVER DISCHARGE PAPERWORK WITH . NO QUESTIONS ASKED. HOME ADMINISTRATOR ASSISTED PT SOBIA VIA W/C.
== END 2019-03-24 16:30 | disposition home health service (06) | DRG 917 ==
LOC: COL.ER 14:05 → MEDICAL 16:50
PROVIDERS: Emergency Medicine; Physician Assistant; ADMIT Student in an Organized Health Care Education/Training Program
DX: T50.901A Poisoning by unspecified drugs, medicaments and biological substances, accidental (unintentional), initial encounter (principal); E43 Unspecified severe protein-calorie malnutrition; S01.01XA Laceration without foreign body of scalp, initial encounter; J44.9 Chronic obstructive pulmonary disease, unspecified; M06.9 Rheumatoid arthritis, unspecified; G43.909 Migraine, unspecified, not intractable, without status migrainosus; F32.9 Major depressive disorder, single episode, unspecified; G89.29 Other chronic pain; M54.5 Low back pain; F17.210 Nicotine dependence, cigarettes, uncomplicated; E16.2 Hypoglycemia, unspecified; M51.36 Other intervertebral disc degeneration, lumbar region; H35.52 Pigmentary retinal dystrophy; I44.0 Atrioventricular block, first degree; I34.0 Nonrheumatic mitral (valve) insufficiency; E03.9 Hypothyroidism, unspecified; Z90.49 Acquired absence of other specified parts of digestive tract; Z79.82 Long term (current) use of aspirin; Z88.5 Allergy status to narcotic agent; Z88.8 Allergy status to other drugs, medicaments and biological substances
CPT/HCPCS: 99223-AI; 99233-AI; 99239; G0378; J7030

== ENCOUNTER → 2019-04-14 | Outpatient (CLI) | payer MEDICARE, BC ==
[~2019-04-14] MED LIST changes: +ACIDOPHILIS
[2019-04-14 17:59] LABS: BASO # 0.1 (0.0-0.2); BASO % 0.3 % (0.0-2.0); EOS % 0.2 % (0-4.0); GRAN # 15.7 (1.4-6.5); GRAN % 88.4 % (42.2-75.2); HEMATOCRIT 37.4 % (37.0-47.0); HEMOGLOBIN 11.3 g/dl (12.5-16.0); LYMPH # 0.9 (1.2-3.4); LYMPH % 5.1 % (20.0-51.0); MEAN CELL VOLUME 89 fl (80.0-100.0); MEAN CORPUSCULAR HEMOGLOBIN 27 pg (27.0-31.0); MEAN CORPUSCULAR HGB CONC 30 g/dl (33.0-37.0); MEAN PLATELET VOLUME 9.1 fl (7.4-10.4); MONO # 0.8 (0.1-0.6); MONO % 4.7 % (1.7-9.3); PLATELET COUNT 437 K/mm3 (130-400); RED BLOOD COUNT 4.21 M/mm3 (4.10-5.30); REDCELL DISTRIBUTION WIDTH-CV 21.1 % (11.5-14.5)
[2019-04-14 18:13] LABS: ALANINE AMINOTRANSFERASE < 6 U/L (9-52); ALBUMIN 3.7 gm/dL (3.5-5.0); ALKALINE PHOSPHATASE 63 U/L (50-136); ANION GAP 9 mmol/L (7-16); AST,SGOT 22 U/L (15-37); BILIRUBIN,TOTAL 0.2 mg/dL (0.0-1.0); BLOOD UREA NITROGEN 25 mg/dL (7-17); CALCIUM 8.9 mg/dL (8.4-10.2); CARBON DIOXIDE 27 mmol/L (22-30); CHLORIDE 105 mmol/L (98-107); CREATININE, serum 1.11 (0.52-1.25); GLUCOSE 98 mg/dL (74-106); POTASSIUM 4.4 mmol/L (3.4-5.0); SODIUM 141 mmol/L (137-145); TOTAL PROTEIN 6.6 gm/dL (6.4-8.2)
== END ==
LOC: ZCOL.LAB 15:51
PROVIDERS: Nurse Practitioner Family
DX: J44.1 Chronic obstructive pulmonary disease with (acute) exacerbation (principal)

== ENCOUNTER → 2019-04-17 | Outpatient (CLI) | payer MEDICARE, BC ==
[2019-04-17 15:59] LABS: BASO % 0.3 % (0.0-2.0); EOS # 0.1 (0.0-0.7); GRAN # 10.7 (1.4-6.5); GRAN % 83.6 % (42.2-75.2); HEMOGLOBIN 10.7 g/dl (12.5-16.0); LYMPH # 1.1 (1.2-3.4); LYMPH % 8.3 % (20.0-51.0); MEAN CELL VOLUME 90 fl (80.0-100.0); MEAN CORPUSCULAR HEMOGLOBIN 27 pg (27.0-31.0); MEAN CORPUSCULAR HGB CONC 30 g/dl (33.0-37.0); MEAN PLATELET VOLUME 9.3 fl (7.4-10.4); MONO # 0.8 (0.1-0.6); MONO % 6.1 % (1.7-9.3); PLATELET COUNT 486 K/mm3 (130-400); RED BLOOD COUNT 4.03 M/mm3 (4.10-5.30); REDCELL DISTRIBUTION WIDTH-CV 20.3 % (11.5-14.5)
[2019-04-17 16:34] LABS: HEMATOCRIT 36.2 % (37.0-47.0)
== END ==
LOC: ZCOL.LAB 14:23 → COL.LAB 14:23
PROVIDERS: Nurse Practitioner Family
DX: J18.1 Lobar pneumonia, unspecified organism (principal)

== ENCOUNTER 2019-07-17 17:13 | Inpatient (IN) | payer MEDICARE, BC ==
[~2019-07-17] VITALS: Ht 154.9 cm; Wt 52.8 kg
[2019-07-17 17:58] LABS: ALANINE AMINOTRANSFERASE 13 U/L (9-52); ALBUMIN 3.4 gm/dL (3.5-5.0); ALKALINE PHOSPHATASE 33 U/L (50-136); ANION GAP 6 mmol/L (7-16); AST,SGOT 19 U/L (15-37); BILIRUBIN,TOTAL 0.1 mg/dL (0.0-1.0); BLOOD UREA NITROGEN 24 mg/dL (7-17); CALCIUM 7.7 mg/dL (8.4-10.2); CARBON DIOXIDE 30 mmol/L (22-30); CHLORIDE 105 mmol/L (98-107); CREATININE, serum 1.24 (0.52-1.25); GLUCOSE 59 mg/dL (74-106); POTASSIUM 3.8 mmol/L (3.4-5.0); SODIUM 141 mmol/L (137-145); TOTAL PROTEIN 5.9 gm/dL (6.4-8.2)
[2019-07-17 18:00] LABS: ALCOHOL(ethanol),MEDICAL < 10 mg/dL
[2019-07-17 18:14] LABS: PROLACTIN 50.7 ng/mL (3.0-18.6)
[2019-07-17 18:38] LABS: BASO % 0.7 % (0.0-2.0); EOS # 0.2 (0.0-0.7); EOS % 3.7 % (0-4.0); GRAN # 3.8 (1.4-6.5); GRAN % 64.1 % (42.2-75.2); LYMPH # 1.1 (1.2-3.4); LYMPH % 18.9 % (20.0-51.0); MEAN CELL VOLUME 92 fl (80.0-100.0); MEAN CORPUSCULAR HGB CONC 30 g/dl (33.0-37.0); MEAN PLATELET VOLUME 9.2 fl (7.4-10.4); MONO # 0.7 (0.1-0.6); MONO % 11.9 % (1.7-9.3); PLATELET COUNT 191 K/mm3 (130-400); RED BLOOD COUNT 3.56 M/mm3 (4.10-5.30)
[2019-07-17 18:39] LABS: HEMATOCRIT 32.9 % (37.0-47.0); HEMOGLOBIN 9.8 g/dl (12.5-16.0); MEAN CORPUSCULAR HEMOGLOBIN 28 pg (27.0-31.0)
[2019-07-17 18:57] LABS: COLLECTION METHOD CLEAN CATCH
[2019-07-17 19:13] LABS: TRICYCLIC ANTIDEPRESS URINE NEGATIVE
[2019-07-17 19:19] LABS: MUCOUS Present /lpf; PH 5 (5-8); SQUAMOUS EPITHELIAL None Seen /hpf; URINE APPEARANCE Clear; URINE BACTERIA None Seen /hpf; URINE BILIRUBIN Negative (NEGATIVE); URINE BLOOD Negative (NEGATIVE); URINE COLOR Yellow; URINE GLUCOSE Negative (NEGATIVE); URINE KETONE Negative (NEGATIVE); URINE LEUKOCYTE ESTERASE Trace (NEGATIVE); URINE NITRATE Negative (NEGATIVE); URINE PROTEIN(semi-quant) Negative (NEGATIVE); URINE UROBILINOGEN Negative (NEGATIVE)
[2019-07-17 20:02] LABS: MAGNESIUM 3.6 mg/dL (1.6-2.3); PHOSPHOROUS 3.5 mg/dL (2.5-4.5)
[2019-07-17 23:40] LABS: BASO % 0.8 % (0.0-2.0); EOS # 0.2 (0.0-0.7); EOS % 3.6 % (0-4.0); GRAN # 2.7 (1.4-6.5); GRAN % 54.4 % (42.2-75.2); LYMPH # 1.4 (1.2-3.4); MEAN CELL VOLUME 92 fl (80.0-100.0); MEAN CORPUSCULAR HGB CONC 30 g/dl (33.0-37.0); MEAN PLATELET VOLUME 9.4 fl (7.4-10.4); MONO # 0.7 (0.1-0.6); MONO % 13.6 % (1.7-9.3); PLATELET COUNT 175 K/mm3 (130-400); RED BLOOD COUNT 3.51 M/mm3 (4.10-5.30)
[2019-07-17 23:41] LABS: HEMATOCRIT 32.2 % (37.0-47.0); HEMOGLOBIN 9.7 g/dl (12.5-16.0); MEAN CORPUSCULAR HEMOGLOBIN 28 pg (27.0-31.0)
[2019-07-18] VITALS (492 sets, daily range): BP systolic 94–135; BP diastolic 45–71; PULSE 42–70; TEMP 96.4–98.3; O2SAT 52–100
--- NOTE | 2019-07-18 00:54 | NUR ---
PATIENT UP TO RESTROOM, WALKS STAEDY COMPLAINS OF NOT SEEING WELL AND NEEDS DIRECTIONS
--- NOTE | 2019-07-18 03:15 | NUR ---
AT 0100 CBS IS 115, AT 0200 CBS IS 98, AT 0300 CBS IS 73, PROVIDER CALLED, ORDERS RECIEVED, NOW iv ns AT 50/HR AND D5NS AT 50/HR, WILL CONTINUE 1 HOUR CBS..
--- NOTE | 2019-07-18 04:00 | NUR ---
CBS 68, CALLED PROVIDER, ORDER CHANGED TO D5NS AT 100/HR, NS STOPPED, WILL CONTINUE TO MONITOR
[2019-07-18 05:47] LABS: ALANINE AMINOTRANSFERASE 17 U/L (9-52); ALBUMIN 2.8 gm/dL (3.5-5.0); ALKALINE PHOSPHATASE 29 U/L (50-136); ANION GAP 2 mmol/L (7-16); AST,SGOT 21 U/L (15-37); BILIRUBIN,TOTAL < 0.1 mg/dL (0.0-1.0); BLOOD UREA NITROGEN 20 mg/dL (7-17); CALCIUM 7.2 mg/dL (8.4-10.2); CARBON DIOXIDE 30 mmol/L (22-30); CHLORIDE 108 mmol/L (98-107); CREATININE, serum 1.06 (0.52-1.25); GLUCOSE 68 mg/dL (74-106); POTASSIUM 3.9 mmol/L (3.4-5.0); SODIUM 140 mmol/L (137-145)
--- NOTE | 2019-07-18 07:30 | NUR ---
Bedside shift report received from MEG Yeung at this time. Patient is sleeping soundly, vital signs stable. Bed in lowest position. Side rails up x3. Call light within reach.
--- NOTE | 2019-07-18 08:00 | NUR ---
IV assessed and noted to be leaking trace amount of serosanguinous fluid. Patient has no pain with the IV, no erythema noted, flushes well, but does not readily draw blood. Fluids currently infusing without complications. IV secured at this time.
--- NOTE | 2019-07-18 09:15 | NUR ---
Patient has a bowel movement in the bed. Patient cleaned up without complications. Specimen sent to lab for testing.
--- NOTE | 2019-07-18 12:24 | NUR ---
Investigator Internal Affairs stopped by a couple of times and patient was sleeping.
--- NOTE | 2019-07-18 16:33 | NUR ---
Patient assisted to bedside commode with standby assist with no complications.
--- NOTE | 2019-07-18 16:56 | NUR ---
Patient's blood sugar found to be 39. Patient is alert and oriented, has no complaints or concerns at this time. Patient given orange juice and apple juice. Will reassess blood sugar in 30 min.
--- NOTE | 2019-07-18 17:29 | NUR ---
Report called to MEG Yap at this time.
--- NOTE | 2019-07-18 18:00 | NUR ---
Patients IV is noted to have serosanguinous fluid leaking around insertion site and when attempting to assess IV, IV discontinued. Several people assessed and attempted IV insertion. The patient is a very difficult stick. A 22G was placed into her left wrist. IV secured at this time.
--- NOTE | 2019-07-18 18:45 | NUR ---
Patient transferred to medical bed 354 via bed by COMPUTER APPLICATIONS DEVELOPER with no complications. Patient repositioned to side of bed and assisted with setting up her meal tray to eat. Bed in lowest position. Side rails up x3. Call light placed within reach. MEG Allen at bedside and care handed over at this time.
--- NOTE | 2019-07-18 18:45 | NUR ---
Pt transferred from ICU to room 354 with MEG Lopez. Pt sitting on side of bed eating dinner.
--- NOTE | 2019-07-18 20:00 | NUR ---
Received report from MEG Yap and JessicaRN from ICU. Assessment complete. Alert and partially oriented. Denies any pain or discomfort at this time. No SOB. PT sat on side of bed to eat dinner. Lt eye bruising from fall. Multiple ecchymosis to bilateral arms. Tele monitor in place, leads checked. SCD in place to BLE. IV to LW intact, flushed, fluids infusing, dressing CDI. Walker at bedside. Meds administered as ordered. Call light within reach.
[2019-07-19 04:00] VITALS: BP 122/55; PULSE 52; TEMP 97.4
--- NOTE | 2019-07-19 05:32 | NUR ---
Pt unevenrful during this shift. No complaints made. Monitored throughout night. BS 126, 119. SCD in place to BLE. Seizure and fall precautions in place. Call light within reach. D5NS infusinf at 100ml/hr.
--- NOTE | 2019-07-19 07:10 | NUR ---
Report given to MEG Lucio.
[2019-07-19 08:00] VITALS: BP 113/52; PULSE 49; TEMP 98.4
--- NOTE | 2019-07-19 09:30 | NUR ---
Pt sleeping upon entry, no C/O pain at this time, shift assessments complete, left Pt call light in reach, bed in lowest position.
[2019-07-19 11:14] VITALS: BP 91/53; PULSE 67; TEMP 98
[2019-07-19 15:06] LABS: CALCIUM 7.9 mg/dL (8.4-10.2); CREATININE, serum 0.86 (0.52-1.25); POTASSIUM 4.1 mmol/L (3.4-5.0)
[2019-07-19 16:49] VITALS: BP 107/51; PULSE 53; TEMP 97.9
--- NOTE | 2019-07-19 18:37 | NUR ---
Pt resting in the room, napping during the day, easily awakened, BG level dropped to 61 after the D5NS was stopped this morning, D5W started this afternoon and BG checked 1.5 hrs after start, BG increased to 103. Pt had C/O heeadache early this afternoon, provider contacted and tylenol was ordered and given, no C/O pain since, VS have otherwise remained stable.
[2019-07-19 20:00] VITALS: BP 124/51; PULSE 54; TEMP 97.9
--- NOTE | 2019-07-19 20:00 | NUR ---
Received report from MEG Lucio. Assessment complete. Pt laying in bed. Briefs and linen changed. Denies any pain or discomfort at this time. Meds administered as ordered. Fluids infusing to LW, dressing CDI. Fall precaution in place, call light within reach. SCD in place to BLE. Tremors noted to BUE. Tele monitor in place, leads checked. Will cotinue to monitor.
[2019-07-20 02:35] VITALS: BP 131/52; PULSE 52; TEMP 98.1
[2019-07-20 06:20] LABS: HEMOGLOBIN 10.3 g/dl (12.5-16.0); MEAN CELL VOLUME 93 fl (80.0-100.0); MEAN CORPUSCULAR HEMOGLOBIN 28 pg (27.0-31.0); MEAN CORPUSCULAR HGB CONC 30 g/dl (33.0-37.0); MEAN PLATELET VOLUME 9.3 fl (7.4-10.4); PLATELET COUNT 199 K/mm3 (130-400); RED BLOOD COUNT 3.72 M/mm3 (4.10-5.30); REDCELL DISTRIBUTION WIDTH-CV 20.3 % (11.5-14.5)
[2019-07-20 06:26] LABS: HEMATOCRIT 34.4 % (37.0-47.0)
[2019-07-20 06:43] LABS: CALCIUM 8.1 mg/dL (8.4-10.2); CREATININE, serum 0.92 (0.52-1.25)
[2019-07-20 07:06] LABS: BASO % 0.7 % (0.0-2.0); EOS # 0.4 (0.0-0.7); EOS % 6.8 % (0-4.0); GRAN # 2.5 (1.4-6.5); LYMPH # 2.2 (1.2-3.4); LYMPH % 35.8 % (20.0-51.0); MONO # 0.9 (0.1-0.6); MONO % 14.5 % (1.7-9.3)
--- NOTE | 2019-07-20 07:20 | NUR ---
Pt uneventful during this shift. assisted pt x1 to BR, had BM. No complaints made. BS stable, 92, 107, 100. Fall precautions in place, call light within reach. Report given to MEG Lucio.
[2019-07-20 08:14] VITALS: BP 149/52; PULSE 50; TEMP 98
[2019-07-20 12:44] VITALS: BP 133/56; PULSE 55
--- NOTE | 2019-07-20 17:06 | NUR ---
Computer Training Specialist met with patient and patient's , Thierno (ph#[phone]) to discuss discharge planning. Patient lives in [place] with Thierno and sees Dr. Coronado for primary care. Patient reports she is mostly independent with ALDS however has needed some help with dressing. Patient uses a walker at home. Patient plans to return home upon discharge and states she has had [facility] in the past. ALAYNA reviewed PT/OT recommendation for Home Health and provided Medicare.gov list of Home Health Providers that serve [place] ALAYNA contacted Vitor at [facility] and faxed referral. SW to continue to follow.
[2019-07-20 17:22] VITALS: BP 115/49; PULSE 75; TEMP 98.1
--- NOTE | 2019-07-20 18:20 | NUR ---
Pt rested in the room today, she has been sleeping a good portion of the day, blood glucose levels have stabilized while infusing the D5W between 90 and 120, VS have remained stable.
--- NOTE | 2019-07-20 19:10 | NUR ---
REPORT RECEIVED FROM MEG NOLASCO; CARE OF PT ASSUMED AT THIS TIME.
--- NOTE | 2019-07-20 19:18 | NUR ---
Report given to MEG Nunez.
[2019-07-20 19:33] VITALS: BP 113/72; PULSE 80; TEMP 98.9
--- NOTE | 2019-07-20 21:22 | NUR ---
PT IS AWAKE, BUT DROWSY, ALERT AND OX3. PT REPORTS SHE IS COLD ALTHOUGH SKIN IS WARM TO TOUCH, DRY. D5W IS INFUSING AT 50ML/HR TO L WRIST WITHOUT ISSUES. PT HAS HAD 2 EPISODES OF URINARY INCONTINENCE THIS EVENING ALREADY WHERE SHE STATES THAT SHE COULDN'T FIND HER CALL LIGHT. PT HAD [facility]ARE AND FULL BED CHANGE, NEW GOWN PLACED. PT STOOD AT BEDSIDE WITH USE OF WALKER WHILE BED CHANGED. SCD'S IN PLACE BILAT AT THIS TIME. PT GIVEN MEDS; CALL LIGHT WITHIN REACH.
--- NOTE | 2019-07-20 21:37 | NUR ---
BS CHECKED, RESULT 88; PT PROVIDED WITH BELTRAN. TYLENOL GIVEN AT THIS TIME FOR SOTOMAYOR PAIN AT 10/10. CALL LIGHT WITHIN REACH, BED EXIT ALARM ACTIVATED.
--- NOTE | 2019-07-20 22:58 | NUR ---
PT BACK FRIOM CT AT 2244, ASSISTED TO BR, VOIDED AND HAD VERY SMALL STOOL. AMBULATED BACK TO BED WITH WALKER AND AST X1. SCD'D IN PLACE BILAT. NEW IV SITE PLACED BY ED RN WHILE AT CT D/T INFILTRATION OF OTHER SITE; IVF RESTARTED AT 50ML/HR TO R AC SITE. SITE TO L WRIST REMOVED, CATH TIP INTACT. COTTON DRESSING AND PRESSURE APPLIED TO SITE. PT CONT TO REPORT A SOTOMAYOR CURRENTLY RATES AT 10/10; LIGTH TURNED DOWN AND PT GIVEN CALL LIGHT TO USE FOR ASSIST.
[2019-07-21 00:08] VITALS: BP 110/54; PULSE 65; TEMP 98.6
[2019-07-21 04:45] VITALS: BP 106/37; PULSE 55; TEMP 98
--- NOTE | 2019-07-21 04:46 | NUR ---
PT HAS SLEPT PRETTY GOOD THROUGH THE NIGHT. SHE AWAKENS EASILY WHEN IN ROOM, DENIES PAIN TO NEW IV SITE. DOES NOT VOICE ANY COMPLAINTS. IVF DC'D AT 0400 PER ORDER. MULTIPLE LABS ORDERED FOR THIS AM. PT HAD CT OF ABD/PELVIS DURING THE NIGHT PER ORDER. PT IS CURRENTLY NPO FOR AM LABS. BS HAS BEEN 80-115 APPROX WITH CHECKS Q4 TONIGHT. PT DENIES SYMPTOMS. SCD'S IN PLACE. CALL LIGHT WITHIN REACH.
--- NOTE | 2019-07-21 05:27 | NUR ---
DR COREY NOTIFIED REGARDING PT LABS THIS AM AND PT IVF WERE DC'D AT 0400. INQUIRED IF LABS NEEDED TO BE RESCHEDULED, ORDERS TO KEEP AM LAB DRAWS ORDERED. NO NEW ORDERS RECEIVED.
--- NOTE | 2019-07-21 07:31 | NUR ---
REPORT GIVEN TO MEG NOLASCO.
[2019-07-21 08:07] LABS: BASO # 0.1 (0.0-0.2); EOS # 0.4 (0.0-0.7); EOS % 6.4 % (0-4.0); GRAN # 2.5 (1.4-6.5); GRAN % 41.6 % (42.2-75.2); MEAN CELL VOLUME 92 fl (80.0-100.0); MEAN CORPUSCULAR HEMOGLOBIN 28 pg (27.0-31.0); MEAN CORPUSCULAR HGB CONC 31 g/dl (33.0-37.0); MEAN PLATELET VOLUME 9.4 fl (7.4-10.4); MONO % 16.7 % (1.7-9.3); PLATELET COUNT 189 K/mm3 (130-400); RED BLOOD COUNT 3.56 M/mm3 (4.10-5.30); REDCELL DISTRIBUTION WIDTH-CV 20.3 % (11.5-14.5)
[2019-07-21 08:10] LABS: HEMATOCRIT 32.6 % (37.0-47.0)
[2019-07-21 08:18] LABS: CALCIUM 8.2 mg/dL (8.4-10.2); POTASSIUM 4.2 mmol/L (3.4-5.0)
[2019-07-21 08:44] VITALS: BP 104/45; PULSE 50; TEMP 98
--- NOTE | 2019-07-21 09:32 | NUR ---
Pt napping upon entry, easily awakened, no C/O pain at this time, shift assessments complete, left Pt call light in reach, bed in lowest position.
[2019-07-21 12:00] VITALS: BP 113/48; PULSE 52; TEMP 97.7
[2019-07-21] MEDS ORDERED: BACTRIM DS 8001 TAB PO (14:19)
[2019-07-21] MEDS ORDERED: KEPPRA 500MG500 MG PO (14:19)
[2019-07-21] MEDS ORDERED: GLUCOSE TEST ST1 DEV MC (14:22)
[2019-07-21] MEDS ORDERED: FREESTYLE PREC1 EAC5 MC (14:22)
[2019-07-21] MEDS ORDERED: LANCETS MC (14:23)
--- NOTE | 2019-07-21 16:44 | NUR ---
Patient to discharge home today. ALAYNA contacted Vitor at [facility] to notify him of discharge and faxed orders. No additional concerns at this time.
--- NOTE | 2019-07-21 17:12 | NUR ---
Pt discharged to home, discussed discharge instructions with Pt and spouse, Pt escorted to entrance in , left with spouse via private transportation.
[2019-07-24 05:08] LABS: C-PEPTIDE,SERUM 0.85 ng/mL (0.80-3.90)
== END 2019-07-21 17:25 | disposition home health service (06) | DRG 641 ==
LOC: COL.ER 17:13 → MEDICAL 19:41 → IMCU 19:41 → MEDICAL 07-18 18:30
PROVIDERS: Family Medicine; Hospitalist; Nurse Practitioner Family; Physician Assistant; ADMIT Internal Medicine
DX: E16.2 Hypoglycemia, unspecified (principal); N39.0 Urinary tract infection, site not specified; R64 Cachexia; R56.9 Unspecified convulsions; G20 Parkinson's disease; J44.9 Chronic obstructive pulmonary disease, unspecified; F32.9 Major depressive disorder, single episode, unspecified; M06.9 Rheumatoid arthritis, unspecified; G89.29 Other chronic pain; Z96.651 Presence of right artificial knee joint; Z96.641 Presence of right artificial hip joint; F17.210 Nicotine dependence, cigarettes, uncomplicated; I95.1 Orthostatic hypotension; G43.909 Migraine, unspecified, not intractable, without status migrainosus; E86.0 Dehydration; E03.9 Hypothyroidism, unspecified; H35.52 Pigmentary retinal dystrophy; Z90.49 Acquired absence of other specified parts of digestive tract; Z87.11 Personal history of peptic ulcer disease; Z88.5 Allergy status to narcotic agent; Z88.8 Allergy status to other drugs, medicaments and biological substances
CPT/HCPCS: 99223-AI; 99232-AI; 99239; A4216; A9585; J0696; J1644; J7030; J7042; J7070; Q9967

== ENCOUNTER → 2020-01-26 | Outpatient (CLI) | payer MEDICARE, BC ==
[~2020-01-26] MED LIST changes: +BACTRIM DS 8001 TAB PO; +FREESTYLE PREC1 EAC5 MC; +GLUCOSE TEST ST1 DEV MC; +KEPPRA 500MG500 MG PO; +LANCETS MC
== END ==
LOC: COL.RAD 08:20
DX: K86.1 Other chronic pancreatitis (principal); K57.30 Diverticulosis of large intestine without perforation or abscess without bleeding; Z96.641 Presence of right artificial hip joint; Z90.710 Acquired absence of both cervix and uterus; Z98.890 Other specified postprocedural states; Z98.1 Arthrodesis status
CPT/HCPCS: Q9967

== ENCOUNTER 2020-04-06 15:22 | Outpatient (CLI) | payer MEDICARE, BC ==
[~2020-04-06] VITALS: Ht 154.9 cm; Wt 48.0 kg
[2020-04-06 15:54] VITALS: BP 112/68; PULSE 62; TEMP 98.1
[2020-04-06] MEDS ORDERED: LIPITOR 10MG10 MG PO (16:00)
[2020-04-06] MEDS ORDERED: VITAMIN B-6100 MG PO (16:02)
== END 2020-04-06 16:30 | disposition home or self-care (01) ==
LOC: EUO 15:22
DX: M81.0 Age-related osteoporosis without current pathological fracture (principal)
CPT/HCPCS: J3489

== ENCOUNTER → 2020-04-19 | Outpatient (CLI) | payer MEDICARE, BC ==
[~2020-04-19] MED LIST changes: +LIPITOR 10MG10 MG PO; +VITAMIN B-6100 MG PO
== END ==
LOC: COL.RAD 10:31
DX: K31.89 Other diseases of stomach and duodenum (principal)

== ENCOUNTER 2021-04-14 14:55 | Outpatient (CLI) | payer MEDICARE, BC ==
[~2021-04-14] VITALS: Ht 154.9 cm; Wt 44.0 kg
[2021-04-14 16:02] VITALS: BP 112/60; PULSE 65; TEMP 98.5
--- NOTE | 2021-04-14 16:35 | NUR ---
INT was DC'd with catheter intact. Pt assisted out to meet in waiting room by wheelchair.
== END 2021-04-14 17:25 | disposition home or self-care (01) ==
LOC: EUO 14:55
DX: M81.0 Age-related osteoporosis without current pathological fracture (principal)
CPT/HCPCS: J3489

== ENCOUNTER → 2021-06-06 | Outpatient (CLI) | payer MEDICARE, BC | LOC: COL.RAD 11:04 | DX: Z01.812 Encounter for preprocedural laboratory examination (principal); K86.1 Other chronic pancreatitis | CPT/HCPCS: Q9967 ==

== ENCOUNTER → 2021-09-12 | Outpatient (CLI) | payer MEDICARE, BC | LOC: COL.RAD 09:11 | DX: K43.9 Ventral hernia without obstruction or gangrene (principal) ==

== ENCOUNTER 2021-10-06 05:52 | Day surgery (SDC) | payer MEDICARE, BC ==
[~2021-10-06] VITALS: Ht 152.4 cm; Wt 46.3 kg
[~2021-10-06 05:52] MED LIST changes: -VITAMIN D 1001000 IU PO; +VITAMIN D31000 IU PO
[2021-10-06] MEDS ORDERED: CALCIUM 600MG+D1 TAB PO (06:26)
[2021-10-06 06:44] VITALS: BP 122/61; PULSE 65; TEMP 97.2
[2021-10-06] MEDS ORDERED: DEPAKOTE500 MG PO (06:48)
[2021-10-06] MEDS ORDERED: BENTYL 10MG10 MG/CAP PO (06:49)
[2021-10-06] MEDS ORDERED: ASPIRIN 81M81 MG/TA2 PO (06:50)
[2021-10-06] MEDS ORDERED: REMERON 15M15 MG/TA1 PO (06:51)
[2021-10-06] MEDS ORDERED: RECLAST5 MG/100 M IV (06:51)
[2021-10-06] MEDS ORDERED: RYTARY1 CE2 PO (06:52)
[2021-10-06] MEDS ORDERED: NORCO 325 MG-51 TAB PO (09:09)
[2021-10-06 09:35] VITALS: BP 125/54; PULSE 72; TEMP 97.1
--- NOTE | 2021-10-06 09:35 | NUR ---
The patient arrived back to [place] [facility] from the recovery room at this time. The patient denies any pain or nausea but does report increased pain with coughing. Post operative vital signs were started at this time. The patient's dressing to her left groin appears clean, dry and intact. The patient agrees to try some apple juice at this time. The patient's was brought back to be at her bedside. Call light is within reach.
[2021-10-06 09:50] VITALS: BP 109/45; PULSE 74
--- NOTE | 2021-10-06 09:50 | NUR ---
The patient has finished her juice and appeared to tolerate it well. The patient requests to try some sprite at this time. Vital signs appear stable. remains at bedside. Call light is within reach.
[2021-10-06 10:05] VITALS: BP 105/41; PULSE 78
--- NOTE | 2021-10-06 10:10 | NUR ---
The patient has finished her sprite and appeared to tolerate it well. The patient denies wanting anything to eat or drink at this time. Vital signs appear stable. The patient agreed to ambulate to the bathroom when the nurse returns to check her vital signs in 15-20 minutes.
[2021-10-06 10:25] VITALS: BP 107/44; PULSE 78
--- NOTE | 2021-10-06 10:30 | NUR ---
The patient's IV to her left anecubital was removed and a pressure dressing was applied to the site. The nurse assisted and guided the patient to the bathroom with the use of her walker and she appeared to tolerate the activity well. The patient voided without difficulty and voices a desire to be discharged home.
--- NOTE | 2021-10-06 10:45 | NUR ---
Discharge instructions were reviewed with the patient and her . They both verbalized understanding and deny any questions at this time. The discharge papers were signed by the at the patient is blind. The patient was given a PRN dose of Gordon one tab prior to discharge for reports of pain after ambulating to the bathroom. The patient's assisted her to get dressed.
--- NOTE | 2021-10-06 10:55 | NUR ---
The patient was escorted out via wheelchair to a private vehicle by MEG Chance. The patient's belongings and discharge paperwork were sent with her. The patient's is present to drive her home.
== END 2021-10-06 10:55 | disposition home or self-care (01) ==
LOC: SDCO 05:52
DX: K40.90 Unilateral inguinal hernia, without obstruction or gangrene, not specified as recurrent (principal); K43.9 Ventral hernia without obstruction or gangrene; Z79.899 Other long term (current) drug therapy
CPT/HCPCS: J0690; J1100; J1170; J2405; J2704; J3010; J7120